=== PATIENT | male | born 1960 | race Caucasian/White ===

== ENCOUNTER 2022-07-19 13:18 | Outpatient (CLI) | payer BC, SELFPAY | END 2022-07-19 13:19 | disposition home or self-care (01) | PROVIDERS: PCP Family Medicine; Visit Provider Family Medicine | DX: E78.5 Hyperlipidemia, unspecified (principal); M10.9 Gout, unspecified; I10 Essential (primary) hypertension; Z12.5 Encounter for screening for malignant neoplasm of prostate | CPT/HCPCS: 80053; 80061; 84153; 84550 ==

== ENCOUNTER 2023-09-02 11:20 | Outpatient (CLI) | payer MEDICARE, BC, SELFPAY ==
--- OUTSIDE RECORDS SUMMARY | 2023-09-02 11:22 | XMS_ITS | Clinical Summary ---
Author Name Unknown Organization [facility] Address [place], [place] [address] Care Team Providers Care Crawler Tractor Operator Name Role Phone Pcp, No Primary Care Provider Unavailabl e Allergies Active Allergy Reactions Criticality Noted Date Comments Ceftriaxone Hives 06/02/2018 Medications Medication Sig Dispensed Refills Start Date End Date Status lisinopril-hydrochloro thiazide 20-12.5 mg tablet (PRINZIDE)Indications: Severe uncontrolled hypertension Take 1 tablet by mouth once daily. 10 tablet 06/02/2018 Active Family History Medical History Relation Name Comments Diabetes type II Father Kidney failure Father Cancer Mother ?rectal Relation Name Status Comments Father (Age 78) T2DM, dial ysis for renal failure Mother (Age 70) cancer Social History Tobacco Use Types Packs/Day Years Used Date Smoking Tobacco: Never Smokeless Tobacco: Never Alcohol Use Standard Drinks/Week Comments Yes 2 (1 standard drink = 0.6 oz pur e alcohol) PHQ-2 Answer Date Recorded PHQ-2 Score 0 07/07/2018 Sex and Gender Information Value Date Recorded Sex Assigned at Not on file Gender Identity Not on file Sexual Orientation Not on file Obstetrics History Last Filed Vital Signs Vital Sign Reading Time Taken Comments Blood Pressure 208/105 06/02/2018 8:37 AM DELICATESSEN MANAGER Pulse 101 06/02/2018 8:34 AM DELICATESSEN MANAGER Temperature 36.6 ??C (97.8 ??F) 06/02/2018 8:34 AM CS T Respiratory Rate - - Oxygen Saturation 96% 06/02/2018 8:34 AM DELICATESSEN MANAGER Inhaled Oxygen Concentration - - Weight 111.8 kg (246 lb 6 oz) 06/02/2018 8:34 AM DELICATESSEN MANAGER Height 185.4 cm (6' 1) 06/02/2018 8:34 AM DELICATESSEN MANAGER Body Mass Index 32.51 06/02/2018 8:34 AM DELICATESSEN MANAGER Plan of Treatment Health Maintenance Due Date Last Done Comments Tdap 1969 HIV for age 15-65 1973 Hepatitis C screening for age 18-79 02/04/1976 Tetanus booster 1978 Colonoscopy through age 75 2003 Lipids for age 45-75 2003 Zoster (shingles) series for age 50+ (1 of 2) 02/04/20 08 BMI (ht and wt on same day) for age 18+ 06/02/2019 0 06/02/2018 Depression screening for age 12+ 06/02/2019 06/02/19 19 COVID-19 vaccine series (1 - 2022-24 season) 3 Pneumococcal series for age 65+ (1 of 1 - PCV) 023 Influenza for age 65+ 01/05/2024 Care Teams Crawler Tractor Operator Relationship Specialty Start Date End Date Pcp, No . PCP - General 02/09/16
== END 2023-09-02 11:21 | disposition home or self-care (01) ==
LOC: NFLDREF 11:20
PROVIDERS: PCP Family Medicine; Visit Provider Family Medicine
DX: M10.9 Gout, unspecified (principal); E78.2 Mixed hyperlipidemia
CPT/HCPCS: 80053; 80061; 84550

== ENCOUNTER 2024-11-10 10:06 | Outpatient (CLI) | payer MEDICARE, BC, SELFPAY | END 2024-11-10 10:07 | disposition home or self-care (01) | LOC: NFLDREF 11-12 15:13 | PROVIDERS: PCP Family Medicine; Referring Provider Family Medicine; Visit Provider Family Medicine | DX: I10 Essential (primary) hypertension (principal); E78.5 Hyperlipidemia, unspecified; M10.079 Idiopathic gout, unspecified ankle and foot | CPT/HCPCS: 80053; 80061; 84550 ==

== ENCOUNTER 2025-01-19 09:30 | Outpatient (CLI) | payer MEDICARE, BC, SELFPAY | END 2025-01-19 09:31 | disposition home or self-care (01) | LOC: NFLDREF 01-25 00:56 | PROVIDERS: PCP Family Medicine; Referring Provider Family Medicine; Visit Provider Family Medicine | DX: E78.5 Hyperlipidemia, unspecified (principal); I10 Essential (primary) hypertension; Z12.5 Encounter for screening for malignant neoplasm of prostate; Z23 Encounter for immunization | CPT/HCPCS: 80053; 80061; G0103 ==

== ENCOUNTER 2025-03-05 10:07 | Outpatient (CLI) | payer MEDICARE, BC, SELFPAY | END 2025-03-05 10:08 | disposition home or self-care (01) | LOC: NFLDREF 03-08 18:33 | PROVIDERS: PCP Family Medicine; Referring Provider Family Medicine; Visit Provider Family Medicine | DX: M10.079 Idiopathic gout, unspecified ankle and foot (principal); I10 Essential (primary) hypertension | CPT/HCPCS: 80048; 84550 ==